=== PATIENT | female | born 1945 | race Caucasian/White ===

== ENCOUNTER 2020-01-29 22:12 | Inpatient (IN) | payer MEDICARE, SELFPAY ==
--- NOTE | ~2020-01-29 | XR_ITS ---
XR chest 1V portable 01/29/2020 23:19 Indication: Dyspnea. Transient alteration of awareness. Procedure: AP portable chest Comparison: 05/15/2019 Findings: Heart size is normal for technique. There are bibasilar infiltrates. No pleural effusion or pneumothorax. No acute osseous abnormality. Impression: 1: Linear bibasilar infiltrates may represent atelectasis, interstitial edema or developing pneumonia . Reviewed, dictated and finalized at location A. Impression: 1: Linear bibasilar infiltrates may represent atelectasis, interstitial edema o r developing pneumonia.
--- NOTE | ~2020-01-29 | CT_ITS ---
EXAMINATION: CT brain wo con DATE: 01/29/2020 23:05 INDICATION: Altered mental status TECHNIQUE: Computed tomography (CT) of the head was performed without intravenous contrast. The dose- length product was 529.67 mGy-cm. The mA was adjusted according to patient size. Iterative reconstruc tion technique was employed. COMPARISON: CT dated 05/08/2019 FINDINGS: Mild generalized atrophy. There is intracranial atherosclerosis. No ventriculomegaly or mid line shift. There are scattered mild periventricular and subcortical white matter changes, most likel y related to small vessel ischemic disease (microangiopathy). Paranasal sinuses and mastoids are pneu matized. No depressed skull fractures. IMPRESSION: 1. No acute intracranial abnormality. 2: Chronic age-related findings. Reviewed, dictated and finalized at location A.
[2020-01-29 22:14] VITALS: BP 134/60; PULSE 54; RESP 14; TEMP 36.6; O2SAT 94
[2020-01-29 22:18] LABS: Glucose Point of Care 117 (65-105)
--- NOTE | 2020-01-29 22:19 | ECG_ITS ---
Measurements Intervals [place] Rate: 54 P: 23 IA: 150 QRS: 40 QRSD: 94 T: 12 QT: 428 QTc: 408 Interpretive Statements SINUS BRADYCARDIA LOW QRS VOLTAGE IN PRECORDIAL LEADS BORDERLINE ST ABNORMALITY- INFERIOR LEADS BASELINE WANDER- V4-V6 BORDERLINE ECG Electronically Signed On 01-30-2020 7:09:36 CDT by Jimmy Weinberg D.O.
--- NOTE | 2020-01-29 22:19 | ED.WEAKNESS ---
HPI - Weakness General Chief complaint: Weakness Stated complaint: ams, failure to thrive Source: RN notes reviewed History of Present Illness HPI Narrative: Patient presents emergency department from home via EMS for altered mental status history as per EMS who states that the patient has been noted the patient to be less responsive over the past several hours. States that over the past several days she has been eating and drinking less. Patient is currently awake and alert x1 denies any complaints at this time the patient does have a history of dementia Related Data Home Medications Medication Instructions Recorded Confirmed alprazolam 01/30/20 aripiprazole mg 01/30/20 atenolol 01/30/20 atenolol 01/30/20 atorvastatin 01/30/20 bupropion HCl PO 01/30/20 donepezil mg 01/30/20 flu vacc [id number](65yr up)PF IM 01/30/20 [Fluzone High-Dose (PF)] irbesartan mg 01/30/20 levofloxacin 01/30/20 levothyroxine 01/30/20 memantine mg 01/30/20 mirtazapine mg 01/30/20 sertraline mg 01/30/20 tramadol mg 01/30/20 Allergies Allergy/AdvReac Type Severity Reaction Status Date / Time No Known Allergies Allergy Unknown Unknown Verified 05/08/19 16:16 Review of Systems Review of Systems: Narrative: Gen.: Denies fevers or chills Eyes: Denies eye pain or visual change ENT: Denies congestion Respiratory: Denies shortness of breath or cough CV: Denies chest pain or palpitations GI: Denies abdominal pain nausea, emesis or diarrhea Musculoskeletal: Denies back pain or muscle pain Neuro: Altered mental status Skin: Denies rash Except as documented, all other systems reviewed and negative [facility] Past Medical History Medical History (Updated 01/30/20 @ 03:49 by Khanh Gaspar DO) Dementia Social History Social History (Updated 01/29/20 @ 22:20 by Khanh Gaspar DO) Smoking status: Never smoker Gender identity (if verbalized by the patient): Female Exam Narrative: Exam Narrative: APPEARANCE: No acute distress, nontoxic, resting in bed EYES: EOMI HEENT: Normocephalic, atraumatic, oromucosa dry RESPIRATORY: No respiratory distress Clear to auscultation bilaterally with no rhonchi wheezing or rales. CARDIOVASCULAR: Regular rate and rhythm without murmurs rubs or gallops. ABDOMINAL: Soft, nontender, nondistended, no rebound or guarding MUSCULOSKELETAl: Moves all extremities. No clubbing, cyanosis or edema. NEURO: Awake and alert x 1. Following commands, speech normal, no focal deficits SKIN:: Warm, dry. No rashes lesions or abrasions PSYCHIATRIC: Normal affect/mood, Course Course Emergency Course: Reviewed old records patient with increased creatinine from prior Discussed with Dr. Shankar presentation work-up agrees with admission at this time request patient started on D5 0.45 normal saline Discussed with patient and family results of workup and diagnosis. Discussed need for admission. Patient and family understand and agree to current treatment plan and recheck patient's glucose and glucose is decreased at this time amp D50 given as well as p.o. Vital Signs Vital signs: Vital Signs Temperature 97.9 F 01/29/20 22:14 Pulse Rate 54 L 01/29/20 22:14 Respiratory Rate 14 01/29/20 22:14 Blood Pressure 134/60 01/29/20 22:14 Pulse Oximetry 94 01/29/20 22:14 Temperature 97.9 F 01/29/20 22:14 Pulse Rate 71 01/30/20 02:10 Respiratory Rate 21 H 01/30/20 02:10 Blood Pressure 149/67 H 01/30/20 02:10 Pulse Oximetry 98 01/30/20 02:10 MDM - Weakness Lab Data Result diagrams: 01/29/20 22:41 01/29/20 22:41 Labs: Lab Results 01/29/20 01/29/20 01/29/20 Range/Units 22:16 22:41 22:41 WBC 7.5 (4.5-10.0) K/mm3 RBC 3.94 L (4.2-5.4) M/mm3 Hgb 12.3 (12.0-15.0) g/dL Hct 39.4 (37.0-47.0) % MCV 100.0 (80-100) fl MCH 31.2 (26-34) pg MCHC 31.2 L (32-36) g/dl RDW 15.3 H (11.5-14.5) % Plt Count 22
[2020-01-29] MEDS: SODIUM CHLORIDE 0.9% IV 1,000 ML 999 ML IV CONT (22:28)
[2020-01-29 22:48] LABS: Basophils Absolute Auto 0.1 K/mm3 (0.0-0.1); Basophils Percent Auto 0.7 % (0.2-1.2); Eosinophils Absolute Auto 0.3 K/mm3 (0-0.3); Eosinophils Percent Auto 4.1 % (0-4.4); Hematocrit 39.4 % (37.0-47.0); Hemoglobin 12.3 g/dL (12.0-15.0); Immature Granulocyte Absolute 0.03 K/mm3 (0.00-0.031); Immature Granulocyte Percent A 0.4 % (0-0.5); Lymphocytes Absolute Auto 1.45 K/mm3 (0.9-3.2); Lymphocytes Percent Auto 19.3 % (18.3-44.2); Mean Corpuscular HGB Conc 31.2 g/dl (32-36); Mean Corpuscular Hemoglobin 31.2 pg (26-34); Mean Platelet Volume 9.8 fl (7.4-10.4); Monocytes Absolute Auto 0.6 K/mm3 (0.1-0.6); Monocytes Percent Auto 8.1 % (2.6-8.5); Neutrophils Absolute Auto 5.1 K/mm3 (1.3-6.7); Neutrophils Percent Auto 67.4 % (45.5-73.1); Platelet Count Result 220 k/mm3 (150-375); Red Blood Count 3.94 M/mm3 (4.2-5.4); Red Cell Distribution Width 15.3 % (11.5-14.5); White Blood Count 7.5 K/mm3 (4.5-10.0)
[2020-01-29 22:59] LABS: INR 0.9
[2020-01-29 23:00] LABS: Lactic Acid Reflex 1.3 mmol/L (0.7-2.1); Partial Thromboplastin Time 28.1 SECONDS (22.3-36.8)
[2020-01-29 23:01] LABS: Alanine Aminotransferase 13 U/L (4-35); Albumin Level 4.1 g/dL (3.5-5.1); Alkaline Phosphatase 82 U/L (38-126); Aspartate Amino Transferase 32 U/L (14-36); Bilirubin,Total 0.3 mg/dL (0.2-1.3); Blood Urea Nitrogen 24 mg/dL (7-17); Calcium 8.9 mg/dL (8.4-10.2); Carbon Dioxide 25 mmol/L (22-30); Chloride 101 mmol/L (98-107); Estimated Glomerular Filt Rate 19; Glucose 86 mg/dL (65-105); Potassium 4.3 mmol/L (3.4-5.0); Sodium 135 mmol/L (137-145)
[2020-01-30] VITALS (8 sets, daily range): BP systolic 103–151; BP diastolic 58–70; PULSE 55–81; RESP 13–21; TEMP 35.9–36.9; O2SAT 91–100; BMI 24.7
[2020-01-30 01:26] LABS: Add Urine Microscopic? NO; Appearance Urine Clear (Clear); Bilirubin Urine Negative (Negative); Blood Urine Negative (Negative); Color Urine Straw (Yellow); Glucose Urine UA Negative (Negative); Ketones Urine Negative (Negative); Leukocyte Esterase Ur Negative LEU/UL (Negative); Nitrate Urine Negative (Negative); Protein Urine Negative (Negative); Specific Grav Ur 1.008 (1.001-1.035); Urobilinogen Urine Negative mg/dL (<2.0)
[2020-01-30 02:43] LABS: Glucose Point of Care 58 (65-105)
[2020-01-30] MEDS: DEXTROSE 50% 25 GM/50 ML SYRINGE IV PUSH (02:53)
--- NOTE | 2020-01-30 02:54 | PC.NURSE ---
Glucose 58, Dextrose given, also pt is eating rekha crackers with a orange juice.
[2020-01-30] MEDS: DEXTROSE 5%/0.45% SOD CHL 1,000 ML 100 ML IV CONT (03:15)
[2020-01-30 03:27] LABS: Glucose Point of Care 157 (65-105)
--- NOTE | 2020-01-30 03:47 | ADMGEN ---
This patient, Joseph Mckoy, was admitted to 2 Medical Room 247-. Patient/family oriented to hospital policies and general routines including ID bracelet, bed and alarms, visiting hours, pain management, procedures, bathroom and other care routines, personal items, smoking policy, room service/diet, and visiting hours. Valuables list has been completed. Information on how to activate the Rapid Response Team has been discussed. Patient/Family are encouraged to report perceived risks to care and to ask questions if they do not understand what they are told or what they should do.
[2020-01-30 05:34] LABS: Glucose Point of Care 94 (65-105)
--- NOTE | 2020-01-30 05:50 | PM.IMHP ---
H&P: HPI History of Present Illness Chief complaint: ?Looked unconscious? Narrative: Date and time of patient contact: 01/30/2020 at 4:10 a.m. Joseph Mckoy is a 74 year old female with a past medical history of dementia and hypertension who was brought to the ER via EMS from [facility] when her noted that the patient looked as if she was not breathing and had been unconscious for several hours today. He EMS reported that the patient's blood glucose when they arrived was 59 patient received D10 in her glucose was 74. On arrival to the ER the patient's glucose was up to 117 but dropped again to 58. A half amp of D50 and her glucoses improved to the 157 and then wrapped back down to 94 2 hours later. Her glucose dropped to 94 despite being on D5 half normal saline at 100 mL an hour. The patient is alert and oriented to self she knows her name and date of . She thinks that she is 58 years old. She is pleasantly confused and conversational but is not an accurate historian. She denies any complaints at this time. Patient's family did not accompany her to the ER. Source of information is past medical records the patient cannot provide any useful information for review of systems. Review of Systems Review of Systems: ROS unobtainable: Yes unobtainable due to mental status PMFSH Past Medical History Medical History (Updated 01/30/20 @ 05:57 by Aranza Shankar DO) Dementia Depression Essential hypertension Hypothyroidism Surgical History Surgical History (Updated 01/30/20 @ 05:57 by Aranza Shankar DO) Status post cataract extraction of both eyes with insertion of intraocular lens Family History Family History Mother Hypertension Social History Social History (Updated 01/30/20 @ 06:03 by Aranza Shankar DO) Smoking packs per day: 0.5 Smoking cigarettes per day: 10.0 Years smoked: 3 Smoking pack-years: 1.50 Smoking status: Former smoker Tobacco type: cigarettes Additional smoking assessment comments: smoked very long time ago for 2-3 yrs per pt Alcohol intake: never Substance use: never Living arrangements: assisted living Additional living arrangements comments: The patient lives at [facility] assisted living with her . Patient has 2 adult children. 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 Gender identity (if verbalized by the patient): Female Spiritual care concerns: No Meds Home Medications and Allergies Home Medications Medication Instructions Recorded Confirmed Type alprazolam [Xanax] 0.5 mg PO Q8H PRN 01/30/20 01/30/20 History aripiprazole 2 mg PO DAILY 01/30/20 01/30/20 History atenolol [Tenormin] 50 mg PO DAILY 01/30/20 01/30/20 History atorvastatin [Lipitor] 40 mg PO DAILY 01/30/20 01/30/20 History bupropion HCl [Wellbutrin SR] 150 mg PO DAILY 01/30/20 01/30/20 History donepezil [Aricept] 10 mg PO DAILY 01/30/20 01/30/20 History irbesartan [Avapro] 300 mg PO DAILY 01/30/20 01/30/20 History levothyroxine [Synthroid] 75 mcg/kg PO DAILY 01/30/20 01/30/20 History memantine [Namenda] 10 mg PO DAILY 01/30/20 01/30/20 History mirtazapine 7.5 mg PO DAILY 01/30/20 01/30/20 History sertraline [Zoloft] 100 mg PO DAILY 01/30/20 01/30/20 History tramadol 50 mg PO Q8H PRN 01/30/20 01/30/20 History Allergies Allergy/AdvReac Type Severity Reaction Status Date / Time No Known Allergies Allergy Unknown Unknown Verified 05/08/19 16:16 Vital Signs Vital Signs - 24 hr 01/29/20 22:14 01/30/20 00:25 01/30/20 02:10 Temperature 97.9 F Pulse Rate 54 L 55 L 71 Respiratory Rate 14 13 21 H Blood Pressure 134/60 133/60 149/67 H Pulse Oximetry 94 98 98 01/30/20 04:11 01/30/20 04:21 01/30/20 05:33 Temperature 97.4 F L 97.2 F L Pulse Rate 56 L 57 L 55 L Respiratory Rate 16 19 16 Blood Pressure 132/62 151/70 H 132/62 Pulse Oximet
[2020-01-30] MEDS: LEVOTHYROXINE SODIUM 75 MCG TABLET PO (06:33)
[2020-01-30 06:47] LABS: Blood Urea Nitrogen 20 mg/dL (7-17); Calcium 8.4 mg/dL (8.4-10.2); Carbon Dioxide 26 mmol/L (22-30); Chloride 107 mmol/L (98-107); Estimated CRCL calculation 15 ml/min; Estimated Glomerular Filt Rate 23; Glucose 44 mg/dL (65-105); Potassium 4.1 mmol/L (3.4-5.0); Sodium 138 mmol/L (137-145)
[2020-01-30] MEDS: GLUCOSE ORAL GEL 15 GM OF GLUCSE IN 37.5 GM TUBE PO (07:28)
[2020-01-30 07:41] LABS: Glucose Point of Care 65 (65-105)
[2020-01-30 07:41] LABS: Glucose Point of Care 65 (65-105)
[2020-01-30 07:41] LABS: Glucose Point of Care 69 (65-105)
[2020-01-30] MEDS: SERTRALINE HCL 50 MG TABLET 100 MG PO (08:42)
[2020-01-30] MEDS: MEMANTINE 10 MG TABLET PO (08:42)
[2020-01-30] MEDS: atenoloL 50 MG TABLET PO (08:42)
[2020-01-30] MEDS: ARIPIPRAZOLE 2 MG TABLET PO (08:42)
[2020-01-30 08:56] LABS: Total Triiodothyronine (T3) 0.45 NG/ML (0.97-1.69)
[2020-01-30 09:45] LABS: Glucose Point of Care 59 (65-105)
[2020-01-30 10:12] LABS: Glucose Point of Care 49 (65-105)
[2020-01-30 10:52] LABS: Free T4 Free Thyroxine 0.44 ng/mL (0.78-2.19)
[2020-01-30 11:51] LABS: Glucose Point of Care 47 (65-105)
--- NOTE | 2020-01-30 13:35 | PM.IMPN ---
Progress Note: A&P Assessment and Plan (1) Hypoglycemia: Code(s): E16.2 - Hypoglycemia, unspecified Status: Acute Assessment and Plan: Likely due to failure to thrive most likely from dementia. The patient does not have a history of diabetes and is not on any hypoglycemic agents. Family does not think she could have gotten to her 's diabetic medications since the facility hold her med enhancing not daily. The patient had been placed on D5 normal saline but the patient has pulled her IV out on multiple occasions. She has still been hypoglycemic through the morning, with her recent glucose at 78. The patient has not really been eating or drinking much today other than a little bit of juice and ice cream. We checked a cortisol level to rule out Jay[place]'s disease, it was 12 which is within normal limits for the time that it was drawn. We will continue checking Accu-Cheks more frequently until she is no longer hypoglycemic, then once stable she can be returned to q.4 hours. (2) Acute renal insufficiency: Code(s): N28.9 - Disorder of kidney and ureter, unspecified Status: Acute Assessment and Plan: History of CKD but it appears that her creatinine is normally around 1.5. Likely due to volume depletion in combination with continued Arb use.Avapro has been held. The patient has not been eating or drinking months since arrival and she continues to pull her IV fluids out. Continue IV fluid hydration. Repeat BMP daily. (3) Dementia: Code(s): F03.90 - Unspecified dementia without behavioral disturbance Status: Acute Assessment and Plan: I suspect the patient's dementia is likely advancing. However some of her symptoms may be due to polypharmacy. Will hold tramadol. Continue monitoring . (4) Hypothyroidism: Code(s): E03.9 - Hypothyroidism, unspecified Status: Acute Assessment and Plan: The patient's daughter states that the patient has not been taking her thyroid medication recently and has been refusing. Her TSH was 84.9, free T4 was 0.44, total T3 was 0.45 which is consistent with hypothyroidism. We will get her started back on her levothyroxine at 75 mcg which seemed to be controlling her thyroid well on her last lab in May of 2019. This could also be contributing to some of her confusion, altered mental status as why she came to the hospital. Time Spent With Patient Time with patient: 25 - 35 minutes Subjective Date/time seen: 01/30/20 13:35 Interval history: 74-year-old woman with history of Graves disease, Alzheimer's dementia, carotid stenosis, CKD, who presented to the emergency department via EMS with altered mental status. Date of service 01/30/2020: Patient is a poor historian secondary to dementia. Patient reports she is feeling fine today. She denies any chest pain, shortness of breath, cough, fever, chills, abdominal pain, nausea, vomiting, leg pain, or any other symptoms at this time. She is unsure why she is in the hospital at this time. I talked to the patient's daughter, Mago Rendon, who states the patient's stated that she had been very lethargic, with a glazed over look, sitting up in the chair for the last few days and had not changed her clothes which is very abnormal for her. The patient had not been eating or drinking anything in the last few days. She also states that the patient stop taking most of her medications and would only take 3 meds daily. The daughter thinks that she was taking her Zoloft, bupropion, and a blood pressure medication and that was it. The daughter states her father is a diabetic but they do not have access to their medications at their assisted living facility. There medications, in a blister pack that is brou
[2020-01-30 13:56] LABS: Glucose Point of Care 78 (65-105)
--- NOTE | 2020-01-30 14:30 | PC.NURSE ---
Pt pulled out her second IV this shift , charge nurse and nursing drying room supervisor notified. She is now refusing to get another IV site.Sandie QUINTERO made aware.
[2020-01-30 16:32] LABS: Glucose Point of Care 86 (65-105)
[2020-01-30] MEDS: DONEPEZIL HCL 10 MG TABLET PO (19:48)
[2020-01-30] MEDS: MIRTAZAPINE 7.5 MG TABLET PO (19:48)
[2020-01-30 23:56] LABS: Glucose Point of Care 130 (65-105)
[2020-01-30 23:56] LABS: Glucose Point of Care 114 (65-105)
[2020-01-31] MEDS: DEXTROSE 5%/0.45% SOD CHL 1,000 ML 100 ML IV CONT (00:49)
[2020-01-31] MEDS: LEVOTHYROXINE SODIUM 75 MCG TABLET PO (04:58)
[2020-01-31 05:16] LABS: Basophils Percent Auto 0.6 % (0.2-1.2); Eosinophils Absolute Auto 0.3 K/mm3 (0-0.3); Eosinophils Percent Auto 4.1 % (0-4.4); Hematocrit 36.2 % (37.0-47.0); Hemoglobin 11.1 g/dL (12.0-15.0); Immature Granulocyte Absolute 0.02 K/mm3 (0.00-0.031); Immature Granulocyte Percent A 0.3 % (0-0.5); Lymphocytes Absolute Auto 1.67 K/mm3 (0.9-3.2); Lymphocytes Percent Auto 24.5 % (18.3-44.2); Mean Corpuscular HGB Conc 30.7 g/dl (32-36); Mean Corpuscular Hemoglobin 30.8 pg (26-34); Mean Corpuscular Volume 100.6 fl (80-100); Mean Platelet Volume 9.9 fl (7.4-10.4); Monocytes Absolute Auto 0.5 K/mm3 (0.1-0.6); Neutrophils Absolute Auto 4.3 K/mm3 (1.3-6.7); Neutrophils Percent Auto 63.5 % (45.5-73.1); Platelet Count Result 191 k/mm3 (150-375); Red Cell Distribution Width 15.1 % (11.5-14.5); White Blood Count 6.8 K/mm3 (4.5-10.0)
[2020-01-31 05:29] LABS: Blood Urea Nitrogen 19 mg/dL (7-17); Calcium 8.4 mg/dL (8.4-10.2); Carbon Dioxide 23 mmol/L (22-30); Chloride 107 mmol/L (98-107); Estimated CRCL calculation 17 ml/min; Estimated Glomerular Filt Rate 27; Glucose 74 mg/dL (65-105); Potassium 3.9 mmol/L (3.4-5.0); Sodium 138 mmol/L (137-145)
[2020-01-31 06:05] LABS: Glucose Point of Care 78 (65-105)
[2020-01-31 07:53] LABS: Glucose Point of Care 160 (65-105)
[2020-01-31 08:00] VITALS: PULSE 81; RESP 16; O2SAT 91
[2020-01-31] MEDS: MEMANTINE 10 MG TABLET PO (08:12)
[2020-01-31] MEDS: ARIPIPRAZOLE 2 MG TABLET PO (08:12)
[2020-01-31] MEDS: atenoloL 50 MG TABLET PO (08:12)
[2020-01-31] MEDS: SERTRALINE HCL 50 MG TABLET 100 MG PO (08:12)
[2020-01-31 11:47] LABS: Glucose Point of Care 95 (65-105)
[2020-01-31 13:48] VITALS: BP 142/73; PULSE 66; RESP 16; TEMP 36.3; O2SAT 97
--- NOTE | 2020-01-31 14:40 | PM.IMPN ---
Progress Note: A&P Assessment and Plan (1) Hypoglycemia: Code(s): E16.2 - Hypoglycemia, unspecified Status: Acute Assessment and Plan: Likely due to failure to thrive most likely from dementia. The patient does not have a history of diabetes and is not on any hypoglycemic agents. Family does not think she could have gotten to her 's diabetic medications since the facility hold her med enhancing not daily. Patient's serum glucose this morning was 74. She ate 100% of her meal last night and 40% of her lunch today. Her glucose before lunch was 95. We checked a cortisol level to rule out Jaydon's disease, it was 12 which is within normal limits for the time that it was drawn. We will continue checking Accu-Cheks, hypoglycemia protocol, continue monitoring. (2) Acute renal insufficiency: Code(s): N28.9 - Disorder of kidney and ureter, unspecified Status: Acute Assessment and Plan: History of CKD but it appears that her creatinine is normally around 1.5. Likely due to volume depletion in combination with continued Arb use. Avapro has been held. Her creatinine improved to 1.8. She is almost at her baseline but is still elevated. Continue IV fluid hydration. Repeat BMP daily. (3) Dementia: Code(s): F03.90 - Unspecified dementia without behavioral disturbance Status: Acute Assessment and Plan: I suspect the patient's dementia is likely advancing. However some of her symptoms may be due to polypharmacy. Will hold tramadol. Continue monitoring . (4) Hypothyroidism: Code(s): E03.9 - Hypothyroidism, unspecified Status: Acute Assessment and Plan: The patient's daughter states that the patient has not been taking her thyroid medication recently and has been refusing. Her TSH was 84.9, free T4 was 0.44, total T3 was 0.45 which is consistent with hypothyroidism. We will get her started back on her levothyroxine at 75 mcg which seemed to be controlling her thyroid well on her last lab in May of 2019. This could also be contributing to some of her confusion, altered mental status as why she came to the hospital. Subjective Date/time seen: 01/31/20 14:40 Interval history: 74-year-old woman with history of Graves disease, Alzheimer's dementia, carotid stenosis, CKD, who presented to the emergency department via EMS with altered mental status. Date of service 01/31/2020: Patient is a poor historian secondary to dementia. Patient reports she is feeling fine today. She denies any chest pain, shortness of breath, cough, fever, chills, abdominal pain, nausea, vomiting, leg pain, or any other symptoms at this time. She is unsure why she is in the hospital at this time. I talked to the patient's daughter, Mago Rendon, who states the patient's stated that she had been very lethargic, with a glazed over look, sitting up in the chair for the last few days and had not changed her clothes which is very abnormal for her. The patient had not been eating or drinking anything in the last few days. She also states that the patient stop taking most of her medications and would only take 3 meds daily. The daughter thinks that she was taking her Zoloft, bupropion, and a blood pressure medication and that was it. The daughter states her father is a diabetic but they do not have access to their medications at their assisted living facility. There medications, in a blister pack that is brought in by the staff and she does not think there is a way that she could have taken her 's diabetes medications. This is what brought her into the hospital for further evaluation. Review of Systems Review of Systems: ROS unobtainable: Yes unobtainable due to mental status Exam Narrati
[2020-01-31 16:20] LABS: Glucose Point of Care 109 (65-105)
[2020-01-31 20:00] VITALS: PULSE 62; RESP 18; O2SAT 95
[2020-01-31] MEDS: MIRTAZAPINE 7.5 MG TABLET PO (20:34)
[2020-01-31] MEDS: ALPRAZOLAM 0.5 MG TABLET PO (20:34)
[2020-01-31] MEDS: DONEPEZIL HCL 10 MG TABLET PO (20:34)
[2020-01-31 21:05] LABS: Glucose Point of Care 69 (65-105)
[2020-01-31 21:14] LABS: Glucose Point of Care 115 (65-105)
[2020-01-31 21:15] VITALS: BP 128/62; PULSE 62; RESP 18; TEMP 36.2; O2SAT 95
[2020-02-01] MEDS: LEVOTHYROXINE SODIUM 75 MCG TABLET PO (05:39)
[2020-02-01 05:52] VITALS: BP 135/74; PULSE 61; RESP 14; TEMP 35.9; O2SAT 97
[2020-02-01 06:23] LABS: Blood Urea Nitrogen 18 mg/dL (7-17); Calcium 8.7 mg/dL (8.4-10.2); Carbon Dioxide 24 mmol/L (22-30); Chloride 106 mmol/L (98-107); Estimated CRCL calculation 18 ml/min; Estimated Glomerular Filt Rate 29; Glucose 87 mg/dL (65-105); Potassium 4.9 mmol/L (3.4-5.0); Sodium 135 mmol/L (137-145)
[2020-02-01 08:38] LABS: Glucose Point of Care 84 (65-105)
[2020-02-01 08:57] VITALS: PULSE 61
[2020-02-01] MEDS: ARIPIPRAZOLE 2 MG TABLET PO (08:57)
[2020-02-01] MEDS: atenoloL 50 MG TABLET PO (08:57)
[2020-02-01] MEDS: SERTRALINE HCL 50 MG TABLET 100 MG PO (08:58)
[2020-02-01] MEDS: MEMANTINE 10 MG TABLET PO (08:58)
--- NOTE | 2020-02-01 09:37 | PM.DS ---
DS: Admitting Diagnosis Admitting Diagnosis Admitting Diagnosis: Hypoglycemia, unspecified DS: Discharge Diagnosis Discharge Diagnosis (1) Hypoglycemia: Code(s): E16.2 - Hypoglycemia, unspecified Status: Acute Assessment and Plan: Likely due to failure to thrive most likely from dementia. The patient does not have a history of diabetes and is not on any hypoglycemic agents. Family does not think she could have gotten to her 's diabetic medications since the facility hold her med enhancing not daily. Patient's serum glucose this morning was 87. She has been eating during her meals between 20-70% Her glucose before lunch was 85. We checked a cortisol level to rule out [place]'s disease, it was 12 which is within normal limits for the time that it was drawn. I feel at this time she is back on all of her medications, she is acting appropriately, and she has been eating and drinking. Will have the staff check her glucose as needed if she is having some altered mental status. Otherwise at this time I feel like she is stable to be discharged back to her assisted living facility with her . (2) Acute renal insufficiency: Code(s): N28.9 - Disorder of kidney and ureter, unspecified Status: Acute Assessment and Plan: History of CKD but it appears that her creatinine is normally around 1.5. Likely due to volume depletion in combination with continued Arb use. Avapro has been held. Her creatinine improved to 1.7. The patient continued to take her IV out even after multiple times to keep it in. Her creatinine is basically back to her baseline I will let the family know it is important that she continues to eat and drink to stay hydrated. (3) Dementia: Code(s): F03.90 - Unspecified dementia without behavioral disturbance Status: Acute Assessment and Plan: I suspect the patient's dementia is likely advancing. However some of her symptoms may be due to polypharmacy. Will hold tramadol. . (4) Hypothyroidism: Code(s): E03.9 - Hypothyroidism, unspecified Status: Acute Assessment and Plan: The patient's daughter states that the patient has not been taking her thyroid medication recently and has been refusing. Her TSH was 84.9, free T4 was 0.44, total T3 was 0.45 which is consistent with hypothyroidism. We will get her started back on her levothyroxine at 75 mcg which seemed to be controlling her thyroid well on her last lab in May of 2019. This could also be contributing to some of her confusion, altered mental status as why she came to the hospital. DS: Summary Hospital Course Reason for hospitalization: Patient is a 74-year-old woman with history of dementia, hypothyroidism, who presented to the hospital after she was not eating or drinking for multiple days, altered mental status and was not taking her medications. Initial vitals showed temperature at 97.8?, blood pressure 134/60, heart rate 54, respiratory rate 14, oxygen saturation 94% on room air. Initial lab shows normal CBC with differential, normal coag panel, slight hyponatremia at 135, acute renal failure with a creatinine of 2.5, BUN elevated at 24, and she ended up becoming hypoglycemic with a glucose in the 40s. She was admitted to the hospital for further evaluation, treatment of hypoglycemia, and monitoring her mental status. Her TSH was found to be very elevated showing he had not been taking her medications. She was dehydrated received IV fluids with improvement of her creatinine back to baseline. At this time she is back to her baseline, eating and drinking like normal. I believe this is all secondary to her dementia and refusing medications. At this time she will go back to her assisted living wi
== END 2020-02-01 11:35 | DRG 641 ==
LOC: ANHED 22:31 → ANH2MED 01-30 02:47
PROVIDERS: Physician Assistant; Admitting Provider Internal Medicine; Emergency Provider Emergency Medicine; PCP Internal Medicine; Visit Provider Family Medicine
DX: E16.2 Hypoglycemia, unspecified (principal); R62.7 Adult failure to thrive; Z68.24 Body mass index [BMI] 24.0-24.9, adult; E03.9 Hypothyroidism, unspecified; I12.9 Hypertensive chronic kidney disease with stage 1 through stage 4 chronic kidney disease, or unspecified chronic kidney disease; N18.9 Chronic kidney disease, unspecified; G30.9 Alzheimer's disease, unspecified; F02.80 Dementia in other diseases classified elsewhere, unspecified severity, without behavioral disturbance, psychotic disturbance, mood disturbance, and anxiety; F32.9 Major depressive disorder, single episode, unspecified; Z98.42 Cataract extraction status, left eye; Z98.41 Cataract extraction status, right eye; Z87.891 Personal history of nicotine dependence
CPT/HCPCS: 36415; 70450; 71045; 80048; 80053; 81003; 82533; 82948; 83605; 84439; 84443; 84480; 85025; 85610; 85730; 87040; 93005; 96361; 96365; 99285; A9270; G0378; J7030

== ENCOUNTER 2020-02-07 21:43 | Observation (INO) | payer MEDICARE, SELFPAY ==
--- NOTE | ~2020-02-07 | CT_ITS ---
EXAMINATION: CT brain wo con DATE: 02/08/2020 01:30 INDICATION: Dementia. Failure to thrive. TECHNIQUE: Computed tomography (CT) of the head was performed without intravenous contrast. The dose- length product was 605.33 mGy-cm. The mA was adjusted according to patient size. Iterative reconstruc tion technique was employed. COMPARISON: CT dated 01/29/2020 FINDINGS: Generalized atrophy. There are scattered mild periventricular and subcortical white matter changes, most likely related to small vessel ischemic disease (microangiopathy). There is intracrania l atherosclerosis. Study limited by beam hardening artifact from her rings. No acute intracranial hem orrhage or infarction. Paranasal sinuses and mastoids are pneumatized. No depressed skull fractures. IMPRESSION: 1. No acute intracranial abnormality. Reviewed, dictated and finalized at location A.
[2020-02-07 21:52] VITALS: BP 126/72; PULSE 70; RESP 14; TEMP 36.4; O2SAT 96
--- NOTE | 2020-02-07 21:55 | ECG_ITS ---
Measurements Intervals [place] Rate: 70 P: 9 PA: 163 QRS: 9 QRSD: 81 T: 29 QT: 394 QTc: 426 Interpretive Statements SINUS RHYTHM WITH SINUS ARRHYTHMIA BORDERLINE R WAVE PROGRESSION, ANTERIOR LEADS BORDERLINE T WAVE ABNORMALITY- ANTERIOR LEADS BASELINE ARTIFACT- II, III, AVR, AVL, AVF, V4-V5 BORDERLINE ECG Electronically Signed On 02-08-2020 7:03:56 CDT by Jimmy Weinberg D.O.
[2020-02-07 22:32] LABS: Basophils Percent Auto 0.4 % (0.2-1.2); Eosinophils Absolute Auto 0.1 K/mm3 (0-0.3); Eosinophils Percent Auto 1.2 % (0-4.4); Hematocrit 34.7 % (37.0-47.0); Immature Granulocyte Absolute 0.05 K/mm3 (0.00-0.031); Immature Granulocyte Percent A 0.7 % (0-0.5); Lymphocytes Absolute Auto 1.34 K/mm3 (0.9-3.2); Mean Corpuscular HGB Conc 31.7 g/dl (32-36); Mean Corpuscular Hemoglobin 31.3 pg (26-34); Mean Corpuscular Volume 98.6 fl (80-100); Mean Platelet Volume 9.4 fl (7.4-10.4); Monocytes Absolute Auto 0.5 K/mm3 (0.1-0.6); Monocytes Percent Auto 7.3 % (2.6-8.5); Neutrophils Absolute Auto 4.7 K/mm3 (1.3-6.7); Neutrophils Percent Auto 70.4 % (45.5-73.1); Platelet Count Result 195 k/mm3 (150-375); Red Blood Count 3.52 M/mm3 (4.2-5.4); Red Cell Distribution Width 15.5 % (11.5-14.5); White Blood Count 6.7 K/mm3 (4.5-10.0)
[2020-02-07 22:36] LABS: Add Urine Microscopic? YES; Appearance Urine Cloudy (Clear); Bacteria Urine 1+ /hpf; Bilirubin Urine Negative (Negative); Blood Urine 1+ (Negative); Color Urine Yellow (Yellow); Glucose Urine UA Negative (Negative); Ketones Urine Negative (Negative); Leukocyte Esterase Ur 2+ LEU/UL (Negative); Mucus Urine Rare /lpf; Nitrate Urine Negative (Negative); Protein Urine Negative (Negative); Specific Grav Ur 1.015 (1.001-1.035); Squamous Epithelial Cell Urine Rare /hpf (Few); Urobilinogen Urine Negative mg/dL (<2.0); WBC Urine 31-50 /hpf
[2020-02-07 22:41] LABS: Alanine Aminotransferase 9 U/L (4-35); Albumin Level 3.9 g/dL (3.5-5.1); Alkaline Phosphatase 96 U/L (38-126); Aspartate Amino Transferase 23 U/L (14-36); Bilirubin,Total 0.4 mg/dL (0.2-1.3); Blood Urea Nitrogen 22 mg/dL (7-17); Calcium 8.9 mg/dL (8.4-10.2); Carbon Dioxide 28 mmol/L (22-30); Chloride 105 mmol/L (98-107); Estimated Glomerular Filt Rate 20; Glucose 95 mg/dL (65-105); Potassium 4.1 mmol/L (3.4-5.0); Sodium 137 mmol/L (137-145)
[2020-02-07 23:15] VITALS: BP 92/56; PULSE 75; RESP 16; O2SAT 97
--- NOTE | 2020-02-07 23:37 | ED.AMS ---
HPI - Altered Mental Status General Chief Complaint: Altered Mental Status Stated Complaint: failure to thrive Time Seen by Provider: 02/07/20 23:12 History of Present Illness HPI narrative: Patient presents via EMS from her assisted living, for failure to thrive and inability to sustain that level of care. Here she will not answer the nurses questions. Cursed at the nurses. For me she said she had no pain but would not wake up or answer any other questions. She is lying in the position on her right side. She has a history of dementia. MD complaint: altered mental status Onset (ago): unknown Timing confirmed by: other (Assisted living) Severity: severe Related Data Home Medications Medication Instructions Recorded Confirmed alprazolam [Xanax] 0.5 mg PO Q8H PRN 01/30/20 01/30/20 aripiprazole 2 mg PO DAILY 01/30/20 01/30/20 atenolol [Tenormin] 50 mg PO DAILY 01/30/20 01/30/20 atorvastatin [Lipitor] 40 mg PO DAILY 01/30/20 01/30/20 bupropion HCl [Wellbutrin SR] 150 mg PO DAILY 01/30/20 01/30/20 donepezil [Aricept] 10 mg PO DAILY 01/30/20 01/30/20 irbesartan [Avapro] 300 mg PO DAILY 01/30/20 01/30/20 levothyroxine [Synthroid] 75 mcg/kg PO DAILY 01/30/20 01/30/20 memantine [Namenda] 10 mg PO DAILY 01/30/20 01/30/20 mirtazapine 7.5 mg PO DAILY 01/30/20 01/30/20 sertraline [Zoloft] 100 mg PO DAILY 01/30/20 01/30/20 Allergies Allergy/AdvReac Type Severity Reaction Status Date / Time lisinopril AdvReac Unknown Verified 02/07/20 23:47 pcn Allergy Unknown Uncoded 02/07/20 23:47 Review of Systems Review of Systems: Narrative: Unable to obtain a review of systems due to the patient's dementia. PMFSH Past Medical History Medical History Dementia Depression Essential hypertension Hypothyroidism Surgical History Surgical History Status post cataract extraction of both eyes with insertion of intraocular lens Social History Social History Smoking packs per day: 0.5 Smoking cigarettes per day: 10.0 Years smoked: 3 Smoking pack-years: 1.50 Smoking status: Former smoker Tobacco type: cigarettes Additional smoking assessment comments: smoked very long time ago for 2-3 yrs per pt Alcohol intake: never Substance use: never Additional living arrangements comments: The patient lives at [facility] assisted living with her . Patient has 2 adult children. Additional occupation/education comments: Beautician Gender identity (if verbalized by the patient): Female Spiritual care concerns: No Exam Narrative: Exam Narrative: GENERAL: Laying on her right side with her eyes pressed close together, no acute distress. HEAD: Normocephalic, atraumatic. EYES: PERRLA and EOMI. ENT: Nares clear, no rhinorrhea or epistaxis. Mucous membranes moist. NECK: Supple. CHEST: Clear to auscultation. No respiratory distress. HEART: Regular rate and rhythm. No murmur heard. Normal peripheral pulses. ABDOMEN: Soft, nontender, nondistended, normal active bowel sounds. EXTREMITIES: Normal range of motion. No edema. SKIN: Warm, dry, no rash. NEURO: No focal deficits. . PSYCH: Ignoring me and other caregivers.. Course Consultations Consultation #1: Called Denise García and she said to call Mercedes Will. Called Mercedes, and she said that her parents are living together in assisted. I explained that since she will not take her medicine that she is too difficult for the assisted living establishment to care for and that they want her to go to custodial. Which would probably be a memory care facility. They asked if her father could go there too, told her that she have to work with the elementary school social worker on that tomorrow. We will admit here for overnight fluids and antibiotics and then the social workers will take over. She agrees. She did say that her mother will not ta
[2020-02-07] MEDS: SODIUM CHLORIDE 0.9% IV 1,000 ML 999 ML IV CONT (23:41)
[2020-02-08] VITALS (7 sets, daily range): BP systolic 102–150; BP diastolic 56–68; PULSE 58–80; RESP 14–19; TEMP 36.1–36.9; O2SAT 90–100; BMI 21.7
--- NOTE | 2020-02-08 03:45 | PM.IMHP ---
H&P: HPI History of Present Illness Chief complaint: dementia, UTI Narrative: This is a 74 year old female with known dementia who presented to the hospital from assisted living secondary to refusal to eat and not answering any questions. The patient refused to take any of her medications. The patient was evaluated in the ER tonight and found to have an abnormal urinalysis. CT brain was unremarkable. The patient was admitted to the hospital secondary to abnormal urinalysis and advanced dementia. No other history is obtainable as the patient is refusing to cooperate or answer any questions. No family is present at bedside. Review of Systems Review of Systems: ROS unobtainable: Yes unobtainable due to mental status PMFSH Past Medical History Medical History Dementia Depression Essential hypertension Hypothyroidism Surgical History Surgical History Status post cataract extraction of both eyes with insertion of intraocular lens Family History Family History Mother Hypertension Social History Social History Smoking packs per day: 1.5 Smoking cigarettes per day: 30.0 Years smoked: 3 Smoking pack-years: 4.50 Smoking status: Current every day smoker Tobacco type: cigarettes Additional smoking assessment comments: smoked very long time ago for 2-3 yrs per pt Alcohol intake: former Substance use: never Additional living arrangements comments: The patient lives at [facility] assisted living with her . Patient has 2 adult children. Additional occupation/education comments: Beautician Gender identity (if verbalized by the patient): Female Spiritual care concerns: No Meds Home Medications and Allergies Home Medications Medication Instructions Recorded Confirmed Type alprazolam [Xanax] 0.5 mg PO Q8H PRN 01/30/20 02/08/20 History aripiprazole 2 mg PO DAILY 01/30/20 02/08/20 History atenolol [Tenormin] 50 mg PO DAILY 01/30/20 02/08/20 History atorvastatin [Lipitor] 40 mg PO DAILY 01/30/20 02/08/20 History bupropion HCl [Wellbutrin SR] 150 mg PO DAILY 01/30/20 02/08/20 History donepezil [Aricept] 10 mg PO DAILY 01/30/20 02/08/20 History irbesartan [Avapro] 300 mg PO DAILY 01/30/20 02/08/20 History levothyroxine [Synthroid] 75 mcg/kg PO DAILY 01/30/20 02/08/20 History memantine [Namenda] 10 mg PO BID 01/30/20 02/08/20 History mirtazapine 7.5 mg PO DAILY 01/30/20 02/08/20 History sertraline [Zoloft] 100 mg PO DAILY 01/30/20 02/08/20 History Allergies Allergy/AdvReac Type Severity Reaction Status Date / Time lisinopril AdvReac Unknown Verified 02/07/20 23:47 pcn Allergy Unknown Uncoded 02/07/20 23:47 Vital Signs Vital Signs - 24 hr 02/07/20 21:52 02/07/20 23:15 02/08/20 00:53 Temperature 36.4 C Pulse Rate 70 75 58 L Respiratory Rate 14 16 14 Blood Pressure 126/72 92/56 L 150/63 H Pulse Oximetry 96 97 92 02/08/20 01:59 02/08/20 02:15 Temperature Pulse Rate 63 65 Respiratory Rate 19 15 Blood Pressure 131/56 L 102/68 Pulse Oximetry 100 100 Exam Const: General: no acute distress and awake Nutritional Appearance: well nourished Orientation/consciousness: Other orientation findings (Withdrawn++ ) HENMT: Head: normal to inspection General nose exam: Normal external nose present Face and sinus: normal facial exam Eyes: Pupils: Equal, round and reactive pupils present Neck: Neck: supple and no JVD Thyroid: thyroid normal Lymphatic: lymphadenopathy not noted Resp: Effort & Inspection: normal respiratory effort Auscultation: clear to auscultation bilaterally Cardio: Rate: regular rate Rhythm: regular rhythm Heart sounds: no murmurs GI: Inspection: normal to inspection Auscultation: normal bowel sounds Skin: General skin exam: normal colo
[2020-02-08] MEDS: LEVOTHYROXINE SODIUM INJ 100 MCG/5 ML VIAL 37.5 MCG IV PUSH (05:31)
[2020-02-08] MEDS: SODIUM CHLORIDE 0.9% IV 1,000 ML 100 ML IV CONT ×2 (05:31→15:55)
[2020-02-08 08:54] LABS: Basophils Percent Auto 0.7 % (0.2-1.2); Eosinophils Absolute Auto 0.1 K/mm3 (0-0.3); Eosinophils Percent Auto 2.5 % (0-4.4); Hematocrit 32.6 % (37.0-47.0); Hemoglobin 10.2 g/dL (12.0-15.0); Immature Granulocyte Absolute 0.04 K/mm3 (0.00-0.031); Immature Granulocyte Percent A 0.7 % (0-0.5); Lymphocytes Absolute Auto 1.37 K/mm3 (0.9-3.2); Lymphocytes Percent Auto 24.2 % (18.3-44.2); Mean Corpuscular HGB Conc 31.3 g/dl (32-36); Mean Corpuscular Hemoglobin 31.2 pg (26-34); Mean Corpuscular Volume 99.7 fl (80-100); Mean Platelet Volume 9.8 fl (7.4-10.4); Monocytes Absolute Auto 0.5 K/mm3 (0.1-0.6); Monocytes Percent Auto 8.5 % (2.6-8.5); Neutrophils Absolute Auto 3.6 K/mm3 (1.3-6.7); Neutrophils Percent Auto 63.4 % (45.5-73.1); Platelet Count Result 183 k/mm3 (150-375); Red Blood Count 3.27 M/mm3 (4.2-5.4); Red Cell Distribution Width 15.5 % (11.5-14.5); White Blood Count 5.7 K/mm3 (4.5-10.0)
[2020-02-08 09:09] LABS: Blood Urea Nitrogen 19 mg/dL (7-17); Calcium 8.1 mg/dL (8.4-10.2); Carbon Dioxide 26 mmol/L (22-30); Chloride 109 mmol/L (98-107); Estimated CRCL calculation 19 ml/min; Estimated Glomerular Filt Rate 24; Glucose 80 mg/dL (65-105); Potassium 4.2 mmol/L (3.4-5.0); Sodium 138 mmol/L (137-145)
[2020-02-08] MEDS: ARIPIPRAZOLE 2 MG TABLET PO (12:00)
[2020-02-08] MEDS: SERTRALINE HCL 50 MG TABLET 100 MG PO (12:00)
[2020-02-08] MEDS: MEMANTINE 10 MG TABLET PO (12:00)
[2020-02-08] MEDS: atenoloL 50 MG TABLET PO (12:00)
--- NOTE | 2020-02-08 12:46 | PM.IMPN ---
Progress Note: A&P Assessment and Plan (1) Abnormal urinalysis: Code(s): R82.90 - Unspecified abnormal findings in urine Status: Acute Assessment and Plan: r/o UTI. UCx pending at this moment. Continue ceftriaxone for now while hospitalized, likely home to [facility] with hospice if [place] agreeable and arrangements are made. (2) Dementia: Qualifiers: Dementia behavioral disturbance: with behavioral disturbance Dementia type: unspecified type Qualified Code(s): F03.91 - Unspecified dementia with behavioral disturbance Code(s): F03.90 - Unspecified dementia without behavioral disturbance Status: Chronic Assessment and Plan: Appears to have progressively worsened dementia over the past several weeks/months after speaking with daughter/POA, Mago. She states she is arranging for hospice once discharged as patient has been refusing to eat/drink or take her medications while at home. Her home medications were resumed and administered today prior to Mago stating she would like all of her psychiatric/dementia medications held during stay and at discharge. Mago confirmed she wished patient to be DNR Will treat any acute agitation appropriately. (3) Acute on chronic renal failure: Qualifiers: Acute renal failure type: unspecified Chronic kidney disease stage: stage 3 (moderate) Qualified Code(s): N17.9 - Acute kidney failure, unspecified; N18.3 - Chronic kidney disease, stage 3 (moderate) Code(s): N17.9 - Acute kidney failure, unspecified; N18.9 - Chronic kidney disease, unspecified Status: Acute Assessment and Plan: Cr improved to 2.00 with light IVF Continue light IV hydration BMP tomorrow (4) Dehydration: Code(s): E86.0 - Dehydration Status: Acute Assessment and Plan: Continue IV fluid. Monitor urine output and vital signs. (5) Hypothyroidism: Qualifiers: Hypothyroidism type: unspecified Qualified Code(s): E03.9 - Hypothyroidism, unspecified Code(s): E03.9 - Hypothyroidism, unspecified Status: Chronic Assessment and Plan: We will administer IV levothyroxine. (6) Essential hypertension: Code(s): I10 - Essential (primary) hypertension Status: Chronic Assessment and Plan: BP 110s sys this morning. Occasionally somewhat low. Daughter states she would like atenolol held at discharge given that she will be going home and proceeding with hospice once at [place] Atenolol will be resumed for now; okay to hold if patient refusing We will continue to monitor Consider PRN IV antihypertensives as needed. Subjective Date/time seen: 02/08/20 12:46 Interval history: Patient is a 74 yo F with history of dementia, depression, HTN, and hypothyroidism who is here for failure to thrive and for arrangements for hospice care. Patient is A&Ox3 for me today, initially sleeping, but easily woken with verbal stimuli. Patient has no complaints for me today. She is agreeable to eat and take some of her medications; after speaking with POA/daughterMago, she wishes to hold all medications. She is agreeable to drink Enlive supplements. Denies f/c/s, cp/palpitations, sob/cough, n/v, abd pain, changes in BMs, dysuria, hematuria, cloudy urine, calf pain/swelling. Review of Systems Review of Systems: All systems reviewed & are unremarkable except as noted in HPI and below Exam Narrative: Exam Narrative: Patient is lying on right side of bed at time of visit Const: General: comfortable, no acute distress, well developed, alert and awake Nutritional Appearance: well nourished Orientation/consciousness: patient oriented x3 (Person, place, president, and ) and
[2020-02-09] MEDS: SODIUM CHLORIDE 0.9% IV 1,000 ML 100 ML IV CONT (04:29)
[2020-02-09] MEDS: LEVOTHYROXINE SODIUM INJ 100 MCG/5 ML VIAL 37.5 MCG IV PUSH (05:37)
[2020-02-09 05:49] VITALS: BP 135/56; PULSE 79; RESP 18; TEMP 36.9; O2SAT 90
[2020-02-09 06:28] LABS: Blood Urea Nitrogen 17 mg/dL (7-17); Calcium 8.4 mg/dL (8.4-10.2); Carbon Dioxide 20 mmol/L (22-30); Chloride 112 mmol/L (98-107); Estimated CRCL calculation 20 ml/min; Estimated Glomerular Filt Rate 26; Glucose 70 mg/dL (65-105); Potassium 4.2 mmol/L (3.4-5.0); Sodium 139 mmol/L (137-145)
[2020-02-09 09:18] VITALS: PULSE 80
[2020-02-09] MEDS: atenoloL 50 MG TABLET PO (09:18)
[2020-02-09] MEDS: CEFDINIR 300 MG CAPSULE PO ×2 (09:18→20:08)
[2020-02-09] MEDS: SACCHAROMYCES BOULARDII 250 MG CAPSULE PO ×2 (11:04→17:08)
[2020-02-09 14:00] VITALS: BP 136/52; PULSE 68; RESP 16; TEMP 36.8; O2SAT 98
--- NOTE | 2020-02-09 15:35 | PM.IMPN ---
Progress Note: A&P Assessment and Plan (1) Abnormal urinalysis: Code(s): R82.90 - Unspecified abnormal findings in urine Status: Acute Assessment and Plan: r/o UTI. Patient's urine culture came back positive for Klebsiella pneumoniae. She pulled out her 3rd IV today and I switched her antibiotics to oral cefdinir which should cover Klebsiella. Will wait to see what urine culture sensitivity show tomorrow. plan is for discharge back to [facility] on hospice. The facility wanted her to have a COVID test 1st before accepting her back. At this time we are pending her COVID test results and hopefully she can be discharged home tomorrow when they come back. (2) Dementia: Qualifiers: Dementia behavioral disturbance: with behavioral disturbance Dementia type: unspecified type Qualified Code(s): F03.91 - Unspecified dementia with behavioral disturbance Code(s): F03.90 - Unspecified dementia without behavioral disturbance Status: Chronic Assessment and Plan: Appears to have progressively worsened dementia over the past several weeks/months after speaking with daughter/POA, Mago. She states she is arranging for hospice once discharged as patient has been refusing to eat/drink or take her medications while at home. Her home medications were resumed and administered today prior to Mercedes stating she would like all of her psychiatric/dementia medications held during stay and at discharge. Mago confirmed she wished patient to be DNR Will treat any acute agitation appropriately. (3) Acute on chronic renal failure: Qualifiers: Acute renal failure type: unspecified Chronic kidney disease stage: stage 3 (moderate) Qualified Code(s): N17.9 - Acute kidney failure, unspecified; N18.3 - Chronic kidney disease, stage 3 (moderate) Code(s): N17.9 - Acute kidney failure, unspecified; N18.9 - Chronic kidney disease, unspecified Status: Acute Assessment and Plan: Cr improved to 1.90 with light IVF This seems to be around her baseline and she has pulled out multiple IVs in the last few days. (4) Dehydration: Code(s): E86.0 - Dehydration Status: Acute Assessment and Plan: Vital signs are stable. She is eating and drinking well. (5) Hypothyroidism: Qualifiers: Hypothyroidism type: unspecified Qualified Code(s): E03.9 - Hypothyroidism, unspecified Code(s): E03.9 - Hypothyroidism, unspecified Status: Chronic Assessment and Plan: IV was pulled out so I switch her back to her oral levothyroxine. (6) Essential hypertension: Code(s): I10 - Essential (primary) hypertension Status: Chronic Assessment and Plan: BP 130s sys this morning. Occasionally somewhat low. Daughter states she would like atenolol held at discharge given that she will be going home and proceeding with hospice once at [place] Will continue holding her atenolol. Time Spent With Patient Time with patient: 25 - 35 minutes Subjective Date/time seen: 02/09/20 15:35 Interval history: Patient is a 74 yo F with history of dementia, depression, HTN, and hypothyroidism who is here for failure to thrive and for arrangements for hospice care. Date of service 02/09/2020: Patient reports feeling fine today. She is a poor historian secondary to dementia and is A&O x3, unable to tell me what year it is. She denies any chest pain, shortness of breath, cough, fever, chills, abdominal pain, nausea, leg swelling, or any other symptoms at this time. Review of Systems Review of Systems: ROS unobtainable: Yes unobtainable due to mental status Exam Narrative: Exam Narrative: General: 74-year-old woman jacobyti
[2020-02-09 18:58] LABS: SARS-CoV-2 RNA PCR Negative
[2020-02-09 20:31] VITALS: BP 139/63; PULSE 74; RESP 16; TEMP 36.8; O2SAT 91
[2020-02-10 05:28] VITALS: BP 131/57; PULSE 65; RESP 16; TEMP 36.6; O2SAT 93
[2020-02-10] MEDS: LEVOTHYROXINE SODIUM 75 MCG TABLET PO (05:52)
--- NOTE | 2020-02-10 08:25 | PM.DS ---
DS: Admitting Diagnosis Admitting Diagnosis Admitting Diagnosis: Unspecified abnormal findings in urine DS: Discharge Diagnosis Discharge Diagnosis (1) Abnormal urinalysis: Code(s): R82.90 - Unspecified abnormal findings in urine Status: Acute Assessment and Plan: r/o UTI. Patient's urine culture came back positive for Klebsiella pneumoniae which is sensitive to Ceftriaxone. Will place on oral cefdinir upon discharge. Stable for discharge at this time. COVID test was negative. She can be discharged back to [facility] today and has plans to start Hospice on arrival. (2) Dementia: Qualifiers: Dementia behavioral disturbance: with behavioral disturbance Dementia type: unspecified type Qualified Code(s): F03.91 - Unspecified dementia with behavioral disturbance Code(s): F03.90 - Unspecified dementia without behavioral disturbance Status: Chronic Assessment and Plan: Appears to have progressively worsened dementia over the past several weeks/months after speaking with daughter/POA, Mago. She states she is arranging for hospice once discharged as patient has been refusing to eat/drink or take her medications while at home. Her home medications were resumed and administered today prior to Mago stating she would like all of her psychiatric/dementia medications held during stay and at discharge. Mago confirmed she wished patient to be DNR (3) Acute on chronic renal failure: Qualifiers: Acute renal failure type: unspecified Chronic kidney disease stage: stage 3 (moderate) Qualified Code(s): N17.9 - Acute kidney failure, unspecified; N18.3 - Chronic kidney disease, stage 3 (moderate) Code(s): N17.9 - Acute kidney failure, unspecified; N18.9 - Chronic kidney disease, unspecified Status: Acute Assessment and Plan: Cr improved to 1.90 and it seems to be around her baseline and she has pulled out multiple IVs in the last few days. (4) Dehydration: Code(s): E86.0 - Dehydration Status: Acute Assessment and Plan: Vital signs are stable. She is eating and drinking well. (5) Hypothyroidism: Qualifiers: Hypothyroidism type: unspecified Qualified Code(s): E03.9 - Hypothyroidism, unspecified Code(s): E03.9 - Hypothyroidism, unspecified Status: Chronic Assessment and Plan: Continue oral levothyroxine. (6) Essential hypertension: Code(s): I10 - Essential (primary) hypertension Status: Chronic Assessment and Plan: BP 130s sys this morning. Daughter states she would like atenolol held at discharge given that she will be going home and proceeding with hospice once at [place] DS: Summary Hospital Course Reason for hospitalization: Patient is a 74-year-old woman with a history of Alzheimer's, who presented to the emergency room living facility after she continued to not eat or take any of her medications. She had a recent admission a week prior for similar issues. Initial vitals showed temperature of 97.6?, blood pressure 126/70, heart rate 70, respiratory rate 14, oxygen saturation 96% on room air. Initial labs showed slight anemia with a hemoglobin of 11 which is stable from prior admission, elevated 2.4, BUN was 22, and her urinalysis showed cloudy urine with 2+ leukocyte esterase, 31-50 wbc's, 1+ urine bacteria. Head CT showed no Intracranial abnormality. Patient was admitted the hospital with dehydration, acute kidney injury, urinary tract infection and was started on IV fluids and antibiotics. During her hospitalization the patient's daughter and [id number], Mercedes Will, decided it would be best to make the patient hospice care upon discharge back to her living fa
[2020-02-10] MEDS: CEFDINIR 300 MG CAPSULE PO (08:47)
[2020-02-10] MEDS: SACCHAROMYCES BOULARDII 250 MG CAPSULE PO (08:47)
== END 2020-02-10 13:18 | disposition hospice, home (50) ==
LOC: ANHED 02-08 01:06 → ANH3MED 02-08 03:17
PROVIDERS: Physician Assistant; Admitting Provider Family Medicine; Emergency Provider Emergency Medicine; PCP Internal Medicine; Visit Provider Physician Assistant
DX: N39.0 Urinary tract infection, site not specified (principal); B96.1 Klebsiella pneumoniae [K. pneumoniae] as the cause of diseases classified elsewhere; E86.0 Dehydration; N17.9 Acute kidney failure, unspecified; I12.9 Hypertensive chronic kidney disease with stage 1 through stage 4 chronic kidney disease, or unspecified chronic kidney disease; N18.3 Chronic kidney disease, stage 3 (moderate); G30.9 Alzheimer's disease, unspecified; F02.81 Dementia in other diseases classified elsewhere, unspecified severity, with behavioral disturbance; E03.9 Hypothyroidism, unspecified; F32.9 Major depressive disorder, single episode, unspecified; Z11.59 Encounter for screening for other viral diseases; Z66 Do not resuscitate; Z87.891 Personal history of nicotine dependence
CPT/HCPCS: 36415; 51701; 70450; 80048; 80053; 81001; 85025; 87077; 87086; 87088; 87186; 87635; 93005; 96361; 96365; 96375; 96376; 99285; A9270; C9803; G0378; J0696; J7030; U0003